=== PATIENT | male | born 1980 | race Caucasian/White ===

== ENCOUNTER 2016-10-25 18:44 | Emergency (ER) | payer SELFPAY ==
--- NOTE | 2016-10-25 21:00 | ED ORDER SUMMARY ---
..... Patient: CAMILLE VAN OrderSheet [facility] VisitID: [id number] [place] [address] 36y, M Registration Date/Time: 10/25/2016 ORDER SHEET Weight: 104.3 kg (stated) Allergies: No Known Drug Allergy GENERAL ORDERS: MEDICATION ORDERS: Albuterol Neb Tx 1 unit dose (NOW) (18:59 10/25/2016 SBalde R.N. per protocol) (19:35 SBalde R.N.) DuoNeb Neb Tx 1 unit dose (NOW) (19:22 10/25/2016 Abhishek Dickens) (19:36 JACQUIEaldchio R.N.) Prednisone PO 40 mg (NOW) (19:22 10/25/2016 Abhishek Dickens) (19:42 SBalde R.N.) IV FLUIDS: ORDER SHEET NOTES: [Electronically signed by Dejuan Garibay Dr. (21:07 10/25/2016)] [Electronically signed by Rosalind Connor R.N. (21:16 10/25/2016)] [Electronically locked/signed by Rosalind Connor R.N. (21:16 10/25/2016)]
--- NOTE | 2016-10-25 21:00 | ED ORDER SUMMARY ---
..... Patient: CAMILLE VAN OrderSheet [facility] VisitID: [id number] [place] [address] 36y, M Registration Date/Time: 10/25/2016 ORDER SHEET Weight: 104.3 kg (stated) Allergies: No Known Drug Allergy GENERAL ORDERS: MEDICATION ORDERS: Albuterol Neb Tx 1 unit dose (NOW) (18:59 10/25/2016 SBalde R.N. per protocol) (19:35 SBalde R.N.) DuoNeb Neb Tx 1 unit dose (NOW) (19:22 10/25/2016 Abhishek Dickens) (19:36 JACQUIEaldchio R.N.) Prednisone PO 40 mg (NOW) (19:22 10/25/2016 Abhishek Dickens) (19:42 SBalde R.N.) IV FLUIDS: ORDER SHEET NOTES: [Electronically signed by Dejuan Garibay Dr. (21:07 10/25/2016)] [Electronically signed by Rosalind Connor R.N. (21:16 10/25/2016)] [Electronically locked/signed by Rosalind Connor R.N. (21:16 10/25/2016)]
--- NOTE | 2016-10-25 21:00 | ED NURSING NOTES ---
Clinical Report - Nurses [facility] [address] [place] [address] 10/25/2016 18:44 Patient: CAMILLE VAN TRIAGE Triage time 18:54 Oct 25 2016. Acuity: LEVEL 3. Chief Complaint: SHORTNESS OF BREATH and DIFFICULTY BREATHING. Alert. No acute distress. --18:59 Rosalind Connor R.N. 18:54 10/25/16. BP: 134/93. HR: 108. RR: 24. O2 saturation: 94%. Temp: 98.2 F. Pain level now 0/10. --18:59 Rosalind Connor R.N. Weight: 104.3 kg stated. Height/Length: 72 inches Per Patient. BMI: 31.2. --18:53 Rosalind Connor R.N. Medications Albuterol Sulfate Inhalation. --18:57 Rosalind Connor R.N. Medication/allergy information source: the patient. --18:59 Rosalind Connor R.N. Allergies No Known Drug Allergy. --18:57 Rosalind Connor R.N. History Arrived by private vehicle. Historian: patient. Primary physician (no Ins, goes to Walk-In). ( Can't breath, no Hx of Asthma or Seasonal Allergies. Has recently started having breathing problems.). This started just prior to arrival. Onset. (1 hour ago). He has had wheezing. Treatment [employer]: None. PAST MEDICAL HX: Has not received seasonal influenza immunization. SOCIAL HX: Never smoker. Occasional alcohol use. No drug use. No infectious disease exposure. FALL RISK ASSESSMENT: Fall risk assessment completed. No fall risk identified. NUTRITIONAL RISK ASSESSMENT: The nutritional risk assessment revealed no deficiencies. FUNCTIONAL ASSESSMENT: Functional assessment: no impairments noted. LEARNING NEEDS ASSESSMENT: The learning needs assessment revealed no barriers. SKIN INTEGRITY ASSESSMENT: Skin integrity risk assessment completed. No skin integrity risk identified. --18:59 Rosalind Connor R.N. PROBLEMS: Gastritis. Abdominal Pain. Urinary Calculi. Renal Colic. Tetanus Status. Dental Pain. Hypertension. Ureterolithiasis. Nephrolithiasis. URI. Pneumonia. Gastroenteritis. Dental Caries. Chronic Headache. Headache. Immunizations. Sprain. --18:57 Rosalind Connor R.N. Trigeminal Neuralgia [RuleOut]. --18:57 Rosalind Connor R.N. ADDITIONAL SURGERIES: Appendectomy. Dental Surgery. --18:57 Rosalind Connor R.N. Interventions ID band on patient. To room. --18:59 Rosalind Connor R.N. PHYSICAL ASSESSMENT Ambulatory to room. GENERAL / NEURO / PSYCH: Appears anxious. RESPIRATORY: Moderate respiratory distress. The patient can speak in full sentences. Wheezing present. --19:02 Rosalind Connor R.N. NURSING PROGRESS NOTES ( pt moved to family consult room for [facility] tx.). --19:01 Rosalind Connor R.N. ( RT here assessing pt.). --19:03 Rosalind Connor R.N. 19:34 10/25/16. HR: 93. RR: 22. O2 saturation: 91%. --19:35 Rosalind Connor R.N. Cardiac rhythm: sinus tachycardia. roving department end finder and pulse oximeter placed on patient; carpenter streetcar- Lead II; monitor alarms on. Patient gowned. Reassurance given. Call light placed in reach. ( Brought to room 12.). --19:35 Rosalind Connor R.N. ( 91% room air). --19:35 Rosalind Connor R.N. 19:35 10/25/2016 Albuterol Neb TX 1 unit dose given. Given by the respiratory therapist. Allergies verified and confirmed 5 rights. --19:35 Rosalind Connor R.N. 19:36 10/25/2016 Duoneb (Ipratropium-Albuterol) [facility] TX 1 unit dose given. Given by the respiratory therapist. Allergies verified and confirmed 5 rights. --19:36 Rosalind Connor R.N. 19:42 10/25/2016 Prednisone PO 40 mg given. Allergies verified and confirmed 5 rights. --19:42 Rosalind Connor R.N. The patient has had no adverse reaction. Overall patient status is improved- he states feels better. --21:14 Rosalind Connor R.N. DISPOSITION / DISCHARGE <<STRICKEN ENTRY-- 19:49 10/25/16. BP: 105/61. HR: 93. RR: 18. O2 saturation: 98%. Pain level now 3/10. --19:50 Rosalind Connor R.N. --END STRIKE>> Charted on wrong patient. --19:52 Rosalind Connor R.N. <<[facility]-- Condition at departure: improved and stable. --19:50 Rosalind Connor R.N. --END STRIKE>> Charted On Wrong Patient --19:51 Rosalind Connor R.N. <<[facility] EN[facility]-- No learning barriers present. Discharge instructions provided and reviewed with the family. Family verbalized understanding. Written instructions provided in Portuguese. The patient was discharged by the nurse practitioner. --19:51 Rosalind Connor R.N. --END STRIKE>> Charted On Wrong Patient --19:51 Rosalind Connor R.N. 21:15 10/25/16. BP: 135/65. HR: 90. RR: 20. O2 saturation: 95%. Pain level now 0/10. --21:15 Rosalind Connor R.N. Departure time: 21:16 Oct 25 2016. Condition at departure: improved and stable. No learning barriers present. Reviewed medication(s). Patient verbalized understanding. Written instructions provided in Portuguese. The patient was discharged by the physician. He was discharged home and accompanied by spouse. He left the Emergency Department ambulatory and via private vehicle. Spouse driving. --21:16 Rosalind Connor R.N. Locked/Released at 10/25/2016 21:16 by Rosalind Connor R.N.
--- NOTE | 2016-10-25 21:00 | ED CLINICAL REPORT ---
Clinical Report - Physicians/Mid Levels [facility] [address] [place] [address] 10/25/2016 18:44 Patient: CAMILLE VAN Time Seen: 19:21; initial patient contact. Arrived- By private vehicle. Historian- patient. HISTORY OF PRESENT ILLNESS Chief Complaint: DYSPNEA and HISTORY OF ASTHMA. This started today and is still present and worsening. It was abrupt in onset and has been constant. The dyspnea is described as moderate. (No improvement w/ Albuterol). He has not had worsening of dyspnea with walking. No improvement of dyspnea with rest. No cough, sputum production, fever, sweating episodes or chills. No dyspnea on exertion, chest pain or discomfort or palpitations. He has had wheezing. Similar symptoms previously: Many times. Recent medical care: Not recently seen/assessed. REVIEW OF SYSTEMS The patient has had a nasal discharge, sinus drainage and eye irritation. All systems otherwise negative, except as recorded above. PAST HISTORY Gastritis. Abdominal Pain. Urinary Calculi. Renal Colic. Tetanus Status. Dental Pain. Hypertension. Ureterolithiasis. Nephrolithiasis. URI. Pneumonia. Gastroenteritis. Dental Caries. Chronic Headache. Headache. Immunizations. Sprain. --18:57 Rosalind Connor R.N. Trigeminal Neuralgia [RuleOut]. --18:57 Rosalind Connor R.N. ADDITIONAL SURGERIES: Appendectomy. Dental Surger. Medications: Albuterol Sulfate Inhalation. Allergies: No Known Drug Allergy. SOCIAL HISTORY Former smoker. ADDITIONAL NOTES The nursing notes have been reviewed with agreement regarding the chief complaint, PMH and patient medications and allergies. PHYSICAL EXAM Vital Signs: 10/25/2016 18:54 BP: 134/93. HR: 108. RR: 24. O2 saturation: 94%. Temp: 98.2 F. Have been reviewed. Hypertensive. Tachycardic. Tachypneic. Temperature normal. Oxygen saturation low. Appearance: Alert. Patient in mild distress. Rt Eye: Injected conjunctiva. Lt Eye: Injected conjunctiva. ENT: Pharyngeal erythema. Neck: No jugular venous distention. CVS: Tachycardia. Rhythm normal. No cardiac murmur. Respiratory: Mild respiratory distress with accessory muscle use and retractions. Mildly prolonged expirations. Expiratory moderate bilateral wheezes diffusely. Skin: Skin warm and dry. Normal skin color. Extremities: No calf tenderness. No lower extremity edema. Neuro: Oriented X 3. PROGRESS AND PROCEDURES Course of Care: 20:57 10/25/16. Physical exam findings are improved. Symptoms much better. Prednisone 40 PO given. DuoNeb nebulizer treatment #1 (1 unit dose) given. Disposition: Discharged home in good and improved condition. Condition: good. CLINICAL IMPRESSION Moderate persistent asthma with an acute exacerbation. No status asthmaticus. INSTRUCTIONS Prescription Medications: Albuterol HFA oral inhaler: inhale 2 puffs every 4 hours as needed for wheezing, difficulty breathing or shortness of breath. Dispense one (1) unit. No refill. Flovent HFA oral inhaler 220 mcg/spray: inhale 1 puff every 12 hours. Rinse mouth after use. Dispense one (1) unit. No refill. Substitution is permissible. Follow-up: Screening today revealed the patient's blood pressure to be in the hypertensive range. The patient should follow up with a primary care provider for blood pressure management. Follow-up with: [facility], , , [address], , [place], [id number] Follow up in about four days. Call for an appointment. (Electronically signed by Dejuan Garibay Dr. 10/25/2016 21:07)
--- NOTE | 2016-10-25 21:00 | ED CLINICAL REPORT ---
Clinical Report - Physicians/Mid Levels [facility] [address] [place] [address] 10/25/2016 18:44 Patient: CAMILLE VAN Time Seen: 19:21; initial patient contact. Arrived- By private vehicle. Historian- patient. HISTORY OF PRESENT ILLNESS Chief Complaint: DYSPNEA and HISTORY OF ASTHMA. This started today and is still present and worsening. It was abrupt in onset and has been constant. The dyspnea is described as moderate. (No improvement w/ Albuterol). He has not had worsening of dyspnea with walking. No improvement of dyspnea with rest. No cough, sputum production, fever, sweating episodes or chills. No dyspnea on exertion, chest pain or discomfort or palpitations. He has had wheezing. Similar symptoms previously: Many times. Recent medical care: Not recently seen/assessed. REVIEW OF SYSTEMS The patient has had a nasal discharge, sinus drainage and eye irritation. All systems otherwise negative, except as recorded above. PAST HISTORY Gastritis. Abdominal Pain. Urinary Calculi. Renal Colic. Tetanus Status. Dental Pain. Hypertension. Ureterolithiasis. Nephrolithiasis. URI. Pneumonia. Gastroenteritis. Dental Caries. Chronic Headache. Headache. Immunizations. Sprain. --18:57 Rosalind Connor R.N. Trigeminal Neuralgia [RuleOut]. --18:57 Rosalind Connor R.N. ADDITIONAL SURGERIES: Appendectomy. Dental Surger. Medications: Albuterol Sulfate Inhalation. Allergies: No Known Drug Allergy. SOCIAL HISTORY Former smoker. ADDITIONAL NOTES The nursing notes have been reviewed with agreement regarding the chief complaint, PMH and patient medications and allergies. PHYSICAL EXAM Vital Signs: 10/25/2016 18:54 BP: 134/93. HR: 108. RR: 24. O2 saturation: 94%. Temp: 98.2 F. Have been reviewed. Hypertensive. Tachycardic. Tachypneic. Temperature normal. Oxygen saturation low. Appearance: Alert. Patient in mild distress. Rt Eye: Injected conjunctiva. Lt Eye: Injected conjunctiva. ENT: Pharyngeal erythema. Neck: No jugular venous distention. CVS: Tachycardia. Rhythm normal. No cardiac murmur. Respiratory: Mild respiratory distress with accessory muscle use and retractions. Mildly prolonged expirations. Expiratory moderate bilateral wheezes diffusely. Skin: Skin warm and dry. Normal skin color. Extremities: No calf tenderness. No lower extremity edema. Neuro: Oriented X 3. PROGRESS AND PROCEDURES Course of Care: 20:57 10/25/16. Physical exam findings are improved. Symptoms much better. Prednisone 40 PO given. DuoNeb nebulizer treatment #1 (1 unit dose) given. Disposition: Discharged home in good and improved condition. Condition: good. CLINICAL IMPRESSION Moderate persistent asthma with an acute exacerbation. No status asthmaticus. INSTRUCTIONS Prescription Medications: Albuterol HFA oral inhaler: inhale 2 puffs every 4 hours as needed for wheezing, difficulty breathing or shortness of breath. Dispense one (1) unit. No refill. Flovent HFA oral inhaler 220 mcg/spray: inhale 1 puff every 12 hours. Rinse mouth after use. Dispense one (1) unit. No refill. Substitution is permissible. Follow-up: Screening today revealed the patient's blood pressure to be in the hypertensive range. The patient should follow up with a primary care provider for blood pressure management. Follow-up with: [facility], , , [address], , [place], [id number] Follow up in about four days. Call for an appointment. (Electronically signed by Dejuan Garibay Dr. 10/25/2016 21:07)
--- NOTE | 2016-10-25 21:00 | ED NURSING NOTES ---
Clinical Report - Nurses [facility] [address] [place] [address] 10/25/2016 18:44 Patient: CAMILLE VAN TRIAGE Triage time 18:54 Oct 25 2016. Acuity: LEVEL 3. Chief Complaint: SHORTNESS OF BREATH and DIFFICULTY BREATHING. Alert. No acute distress. --18:59 Rosalind Connor R.N. 18:54 10/25/16. BP: 134/93. HR: 108. RR: 24. O2 saturation: 94%. Temp: 98.2 F. Pain level now 0/10. --18:59 Rosalind Connor R.N. Weight: 104.3 kg stated. Height/Length: 72 inches Per Patient. BMI: 31.2. --18:53 Rosalind Connor R.N. Medications Albuterol Sulfate Inhalation. --18:57 Rosalind Connor R.N. Medication/allergy information source: the patient. --18:59 Rosalind Connor R.N. Allergies No Known Drug Allergy. --18:57 Rosalind Connor R.N. History Arrived by private vehicle. Historian: patient. Primary physician (no Ins, goes to Walk-In). ( Can't breath, no Hx of Asthma or Seasonal Allergies. Has recently started having breathing problems.). This started just prior to arrival. Onset. (1 hour ago). He has had wheezing. Treatment [employer]EARCH MANAGEMENT ASSOCIATE: None. PAST MEDICAL HX: Has not received seasonal influenza immunization. SOCIAL HX: Never smoker. Occasional alcohol use. No drug use. No infectious disease exposure. FALL RISK ASSESSMENT: Fall risk assessment completed. No fall risk identified. NUTRITIONAL RISK ASSESSMENT: The nutritional risk assessment revealed no deficiencies. FUNCTIONAL ASSESSMENT: Functional assessment: no impairments noted. LEARNING NEEDS ASSESSMENT: The learning needs assessment revealed no barriers. SKIN INTEGRITY ASSESSMENT: Skin integrity risk assessment completed. No skin integrity risk identified. --18:59 Rosalind Connor R.N. PROBLEMS: Gastritis. Abdominal Pain. Urinary Calculi. Renal Colic. Tetanus Status. Dental Pain. Hypertension. Ureterolithiasis. Nephrolithiasis. URI. Pneumonia. Gastroenteritis. Dental Caries. Chronic Headache. Headache. Immunizations. Sprain. --18:57 Rosalind Connor R.N. Trigeminal Neuralgia [RuleOut]. --18:57 Rosalind Connor R.N. ADDITIONAL SURGERIES: Appendectomy. Dental Surgery. --18:57 Rosalind Connor R.N. Interventions ID band on patient. To room. --18:59 Rosalind Connor R.N. PHYSICAL ASSESSMENT Ambulatory to room. GENERAL / NEURO / PSYCH: Appears anxious. RESPIRATORY: Moderate respiratory distress. The patient can speak in full sentences. Wheezing present. --19:02 Rosalind Connor R.N. NURSING PROGRESS NOTES ( pt moved to family consult room for [facility] tx.). --19:01 Rosalind Connor R.N. ( RT here assessing pt.). --19:03 Rosalind Connor R.N. 19:34 10/25/16. HR: 93. RR: 22. O2 saturation: 91%. --19:35 Rosalind Connor R.N. Cardiac rhythm: sinus tachycardia. panel monitor and pulse oximeter placed on patient; manager monitoring- Lead II; monitor alarms on. Patient gowned. Reassurance given. Call light placed in reach. ( Brought to room 12.). --19:35 Rosalind Connor R.N. ( 91% room air). --19:35 Rosalind Connor R.N. 19:35 10/25/2016 Albuterol Neb [place] 1 unit dose given. Given by the respiratory therapist. Allergies verified and confirmed 5 rights. --19:35 Rosalind Connor R.N. 19:36 10/25/2016 Duoneb (Ipratropium-Albuterol) [facility] TX 1 unit dose given. Given by the respiratory therapist. Allergies verified and confirmed 5 rights. --19:36 Rosalind Connor R.N. 19:42 10/25/2016 Prednisone PO 40 mg given. Allergies verified and confirmed 5 rights. --19:42 Rosalind Connor R.N. The patient has had no adverse reaction. Overall patient status is improved- he states feels better. --21:14 Rosalind Connor R.N. DISPOSITION / DISCHARGE <<STRICKEN ENTRY-- 19:49 10/25/16. BP: 105/61. HR: 93. RR: 18. O2 saturation: 98%. Pain level now 3/10. --19:50 Rosalind Connor R.N. --END STRIKE>> Charted on wrong patient. --19:52 Rosalind Connor R.N. <<[facility] EN[facility]-- Condition at departure: improved and stable. --19:50 Rosalind Connor R.N. --END STRIKE>> Charted On Wrong Patient --19:51 Rosalind Connor R.N. <<[facility] ENTRY-- No learning barriers present. Discharge instructions provided and reviewed with the family. Family verbalized understanding. Written instructions provided in Japanese. The patient was discharged by the nurse practitioner. --19:51 Rosalind Connor R.N. --END STRIKE>> Charted On Wrong Patient --19:51 Rosalind Connor R.N. 21:15 10/25/16. BP: 135/65. HR: 90. RR: 20. O2 saturation: 95%. Pain level now 0/10. --21:15 Rosalind Connor R.N. Departure time: 21:16 Oct 25 2016. Condition at departure: improved and stable. No learning barriers present. Reviewed medication(s). Patient verbalized understanding. Written instructions provided in Japanese. The patient was discharged by the physician. He was discharged home and accompanied by spouse. He left the Emergency Department ambulatory and via private vehicle. Spouse driving. --21:16 Rosalind Connor R.N. Locked/Released at 10/25/2016 21:16 by Rosalind Connor R.N.
--- NOTE | 2016-10-25 21:16 | ED MED RECONCILIATION SUMMARY ---
Patient: CAMILLE VAN Medication Reconciliation Report [facility] VisitID: [id number] [place] [address] 36y, M Registration Date/Time: 10/25/2016 Weight: 104.3 kg Height/Length: 72 in. BMI: 31.2 ALLERGIES: No Known Drug Allergy The patient's Home Medications are listed below: THE FOLLOWING MEDICATIONS NEED TO BE RECONCILED: Albuterol Sulfate Inhalation The source(s) of the original Home Medication information: patient The following Medications were given to the patient in the Emergency Department: Albuterol [Neb Tx] Neb TX 1 unit dose, administered: 10/25/2016 7:35:00 PM Duoneb [Neb Tx] Neb TX 1 unit dose, administered: 10/25/2016 7:36:00 PM Prednisone [PO] PO 40 mg, administered: 10/25/2016 7:42:00 PM The following Medications were prescribed to the patient: Albuterol HFA oral inhaler: inhale 2 puffs every 4 hours as needed for wheezing, difficulty breathing or shortness of breath. Dispense one (1) unit. No refill. -- Dejuan Garibay Dr. Flovent HFA oral inhaler 220 mcg/spray: inhale 1 puff every 12 hours. Rinse mouth after use. Dispense one (1) unit. No refill. Substitution is permissible. -- Dejuan Garibay Dr.
--- NOTE | 2016-10-25 21:16 | ED MAR SUMMARY ---
..... Medication Administration Record [facility] [address] [place] [address] Patient: CAMILLE VAN Visit ID: [id number] 36y, M Weight: 104.3 kg Height/Length: 72 in BMI: 31.2 ALLERGIES: No Known Drug Allergy Given 19:35 10/25/2016 Rosalind Connor R.N. Medication Administered: ALBUTEROL [NEB TX], Dose: 1 unit dose Neb TX. Medication Ordered: Albuterol Neb Tx 1 unit dose (NOW). Given 19:36 10/25/2016 Rosalind Connor R.N. Medication Administered: DUONEB [NEB TX] (IPRATROPIUM-ALBUTEROL), Dose: 1 unit dose Neb TX. Medication Ordered: DuoNeb Neb Tx 1 unit dose (NOW). Given 19:42 10/25/2016 Rosalind Connor R.N. Medication Administered: PREDNISONE [PO], Dose: 40 mg PO. Medication Ordered: Prednisone PO 40 mg (NOW).
--- NOTE | 2016-10-25 21:16 | ED DISCHARGE INSTRUCTIONS ---
Patient: CAMILLE VAN General Instructions [facility] VisitID: [id number] [address], [place] [address] 36y, M Registration Date/Time: 10/25/2016 Moderate persistent asthma with an acute exacerbation. No status asthmaticus. INSTRUCTIONS Prescription Medications: Albuterol HFA oral inhaler: inhale 2 puffs every 4 hours as needed for wheezing, difficulty breathing or shortness of breath. Dispense one (1) unit. No refill. Flovent HFA oral inhaler 220 mcg/spray: inhale 1 puff every 12 hours. Rinse mouth after use. Dispense one (1) unit. No refill. Substitution is permissible. Follow-up: Screening today revealed the patient's blood pressure to be in the hypertensive range. The patient should follow up with a primary care provider for blood pressure management. Follow-up with: [facility], , , [address], , [place], [id number] Follow up in about four days. Call for an appointment. ADDITIONAL INFORMATION Albuterol Sulfate Pressurized inhalation, suspension What is this medicine? ALBUTEROL (al BYOO ter ole) is a bronchodilator. It helps open up the airways in your lungs to make it easier to breathe. This medicine is used to treat and to prevent bronchospasm. How should I use this medicine? This medicine is for inhalation through the mouth. Follow the directions on your prescription label. Take your medicine at regular intervals. Do not use more often than directed. Make sure that you are using your inhaler correctly. Ask you doctor or health care provider if you have any questions. Talk to your roughener regarding the use of this medicine in children. Special care may be needed. What side effects may I notice from receiving this medicine? Side effects that you should report to your doctor or health animal daycare provider as soon as possible: allergic reactions like skin rash, itching or hives, swelling of the face, lips, or tongue breathing problems chest pain feeling faint or lightheaded, falls high blood pressure irregular heartbeat fever muscle cramps or weakness pain, tingling, numbness in the hands or feet vomiting Side effects that usually do not require medical attention (report to your doctor or health animal daycare provider if they continue or are bothersome): cough difficulty sleeping headache nervousness or trembling stomach upset stuffy or runny nose throat irritation unusual taste What may interact with this medicine? anti-infectives like chloroquine and pentamidine caffeine cisapride diuretics medicines for colds medicines for depression or for emotional or psychotic conditions medicines for weight loss including some herbal products methadone some antibiotics like clarithromycin, erythromycin, levofloxacin, and linezolid some heart medicines steroid hormones like dexamethasone, cortisone, hydrocortisone theophylline thyroid hormones What if I miss a dose? If you miss a dose, use it as soon as you can. If it is almost time for your next dose, use only that dose. Do not use double or extra doses. Where should I keep my medicine? Keep out of the reach of children. Store at room temperature between 15 and 30 degrees C (59 and 86 degrees F). The contents are under pressure and may burst when exposed to heat or flame. Do not freeze. This medicine does not work as well if it is too cold. Throw away any unused medicine after the expiration date. Inhalers need to be thrown away after the labeled number of puffs have been used or by the expiration date; whichever comes first. Ventolin HFA should be thrown away 12 months after removing from foil pouch. Check the instructions that come with your medicine. What should I tell my health care provider before I take this medicine? They need to know if you have any of the following conditions: diabetes heart disease or irregular heartbeat high blood pressure pheochromocytoma seizures thyroid disease an unusual or allergic reaction to albuterol, levalbuterol, sulfites, other medicines, foods, dyes, or preservatives or trying to get breast-feeding What should I watch for while using this medicine? Tell your doctor or health animal daycare provider if your symptoms do not improve. Do not use extra albuterol. If your asthma or bronchitis gets worse while you are using this medicine, call your doctor right away. If your mouth gets dry try chewing sugarless gum or sucking hard candy. Drink water as directed. You have been given the following additional information: Albuterol Sulfate Pressurized inhalation, suspension (Electronically signed by Dejuan Garibay Dr. 10/25/2016 21:07)
--- NOTE | 2016-10-25 21:16 | ED MED RECONCILIATION SUMMARY ---
Patient: CAMILLE VAN Medication Reconciliation Report [facility] VisitID: [id number] [place] [address] 36y, M Registration Date/Time: 10/25/2016 Weight: 104.3 kg Height/Length: 72 in. BMI: 31.2 ALLERGIES: No Known Drug Allergy The patient's Home Medications are listed below: THE FOLLOWING MEDICATIONS NEED TO BE RECONCILED: Albuterol Sulfate Inhalation The source(s) of the original Home Medication information: patient The following Medications were given to the patient in the Emergency Department: Albuterol [Neb Tx] Neb TX 1 unit dose, administered: 10/25/2016 7:35:00 PM Duoneb [Neb Tx] Neb TX 1 unit dose, administered: 10/25/2016 7:36:00 PM Prednisone [PO] PO 40 mg, administered: 10/25/2016 7:42:00 PM The following Medications were prescribed to the patient: Albuterol HFA oral inhaler: inhale 2 puffs every 4 hours as needed for wheezing, difficulty breathing or shortness of breath. Dispense one (1) unit. No refill. -- Dejuan Garibay Dr. Flovent HFA oral inhaler 220 mcg/spray: inhale 1 puff every 12 hours. Rinse mouth after use. Dispense one (1) unit. No refill. Substitution is permissible. -- Dejuan Garibay Dr.
--- NOTE | 2016-10-25 21:16 | ED MAR SUMMARY ---
..... Medication Administration Record [facility] [address] [place] [address] Patient: CAMILLE VAN Visit ID: [id number] 36y, M Weight: 104.3 kg Height/Length: 72 in BMI: 31.2 ALLERGIES: No Known Drug Allergy Given 19:35 10/25/2016 Rosalind Connor R.N. Medication Administered: ALBUTEROL [NEB TX], Dose: 1 unit dose Neb TX. Medication Ordered: Albuterol Neb Tx 1 unit dose (NOW). Given 19:36 10/25/2016 Rosalind Connor R.N. Medication Administered: DUONEB [NEB TX] (IPRATROPIUM-ALBUTEROL), Dose: 1 unit dose Neb TX. Medication Ordered: DuoNeb Neb Tx 1 unit dose (NOW). Given 19:42 10/25/2016 Rosalind Connor R.N. Medication Administered: PREDNISONE [PO], Dose: 40 mg PO. Medication Ordered: Prednisone PO 40 mg (NOW).
--- NOTE | 2016-10-25 21:16 | ED DISCHARGE INSTRUCTIONS ---
Patient: CAMILLE VAN General Instructions [facility] VisitID: [id number] [address], [place] [address] 36y, M Registration Date/Time: 10/25/2016 Moderate persistent asthma with an acute exacerbation. No status asthmaticus. INSTRUCTIONS Prescription Medications: Albuterol HFA oral inhaler: inhale 2 puffs every 4 hours as needed for wheezing, difficulty breathing or shortness of breath. Dispense one (1) unit. No refill. Flovent HFA oral inhaler 220 mcg/spray: inhale 1 puff every 12 hours. Rinse mouth after use. Dispense one (1) unit. No refill. Substitution is permissible. Follow-up: Screening today revealed the patient's blood pressure to be in the hypertensive range. The patient should follow up with a primary care provider for blood pressure management. Follow-up with: [facility], , , [address], , [place], [address] Follow up in about four days. Call for an appointment. ADDITIONAL INFORMATION Albuterol Sulfate Pressurized inhalation, suspension What is this medicine? ALBUTEROL (al BYOO ter ole) is a bronchodilator. It helps open up the airways in your lungs to make it easier to breathe. This medicine is used to treat and to prevent bronchospasm. How should I use this medicine? This medicine is for inhalation through the mouth. Follow the directions on your prescription label. Take your medicine at regular intervals. Do not use more often than directed. Make sure that you are using your inhaler correctly. Ask you doctor or health care provider if you have any questions. Talk to your acid crane operator regarding the use of this medicine in children. Special care may be needed. What side effects may I notice from receiving this medicine? Side effects that you should report to your doctor or health aged or disabled care worker as soon as possible: allergic reactions like skin rash, itching or hives, swelling of the face, lips, or tongue breathing problems chest pain feeling faint or lightheaded, falls high blood pressure irregular heartbeat fever muscle cramps or weakness pain, tingling, numbness in the hands or feet vomiting Side effects that usually do not require medical attention (report to your doctor or health aged or disabled care worker if they continue or are bothersome): cough difficulty sleeping headache nervousness or trembling stomach upset stuffy or runny nose throat irritation unusual taste What may interact with this medicine? anti-infectives like chloroquine and pentamidine caffeine cisapride diuretics medicines for colds medicines for depression or for emotional or psychotic conditions medicines for weight loss including some herbal products methadone some antibiotics like clarithromycin, erythromycin, levofloxacin, and linezolid some heart medicines steroid hormones like dexamethasone, cortisone, hydrocortisone theophylline thyroid hormones What if I miss a dose? If you miss a dose, use it as soon as you can. If it is almost time for your next dose, use only that dose. Do not use double or extra doses. Where should I keep my medicine? Keep out of the reach of children. Store at room temperature between 15 and 30 degrees C (59 and 86 degrees F). The contents are under pressure and may burst when exposed to heat or flame. Do not freeze. This medicine does not work as well if it is too cold. Throw away any unused medicine after the expiration date. Inhalers need to be thrown away after the labeled number of puffs have been used or by the expiration date; whichever comes first. Ventolin HFA should be thrown away 12 months after removing from foil pouch. Check the instructions that come with your medicine. What should I tell my health care provider before I take this medicine? They need to know if you have any of the following conditions: diabetes heart disease or irregular heartbeat high blood pressure pheochromocytoma seizures thyroid disease an unusual or allergic reaction to albuterol, levalbuterol, sulfites, other medicines, foods, dyes, or preservatives or trying to get breast-feeding What should I watch for while using this medicine? Tell your doctor or health aged or disabled care worker if your symptoms do not improve. Do not use extra albuterol. If your asthma or bronchitis gets worse while you are using this medicine, call your doctor right away. If your mouth gets dry try chewing sugarless gum or sucking hard candy. Drink water as directed. You have been given the following additional information: Albuterol Sulfate Pressurized inhalation, suspension (Electronically signed by Dejuan Garibay Dr. 10/25/2016 21:07)
== END 2016-10-25 21:15 | disposition home or self-care (01) ==
LOC: ED SRH 18:44
DX: J45.31 Mild persistent asthma with (acute) exacerbation (principal); I10 Essential (primary) hypertension; Z87.891 Personal history of nicotine dependence